=== PATIENT | male | born 2000 | race Two or more races ===

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

== ENCOUNTER → 2022-10-04 | Emergency (ER) | payer OTHER | END | disposition left against medical advice (07) | LOC: ER 01:24 | DX: K92.0 Hematemesis (principal); Z53.21 Procedure and treatment not carried out due to patient leaving prior to being seen by health care provider ==